=== PATIENT | male | born 1990 | race Caucasian/White ===

== ENCOUNTER 2024-05-01 20:29 | Emergency (ER) | payer OTHER ==
[2024-05-01 22:01] LABS: BASOPHILS PERCENT AUTO 0.2 % (0.2-1.2); EOSINOPHILS ABSOLUTE AUTO 0.2 x10^3/uL (0.0-0.5); EOSINOPHILS PERCENT AUTO 2.6 % (0.0-4.0); HEMATOCRIT 44.4 % (40.0-52.0); HEMOGLOBIN 15.1 g/dL (14.0-18.0); IMMATURE GRAN ABSOLUTE AUTO 0.03 x10^3/uL (0.00-0.07); LYMPHOCYTES PERCENT AUTO 11.1 % (25.0-50.0); MEAN CORPUSCULAR HEMOGLOBIN 28.8 pg (26.0-32.0); MEAN CORPUSCULAR VOLUME 84.7 fL (78.0-93.0); MONOCYTES ABSOLUTE AUTO 0.4 x10^3/uL (0.0-0.8); MONOCYTES PERCENT AUTO 4.9 % (2.0-11.0); NEUTROPHILS ABSOLUTE AUTO 7.2 x10^3/uL (1.8-7.7); NEUTROPHILS PERCENT AUTO 80.9 % (50.0-80.0); PLATELET COUNT,PLT 330 x10^3/uL (130-400); RED BLOOD CELL COUNT 5.24 x10^6/uL (4.5-6.0)
[2024-05-01 22:16] LABS: ALANINE AMINOTRANSFERASE,ALT 51 U/L (16-63); ALBUMIN 3.6 g/dL (3.4-5.0); ALKALINE PHOSPHATASE 107 U/L (46-116); ANION GAP 15.6 mmol/L (5-15); ASPARTATE AMNIOTRANSFERASE,AST 24 U/L (15-37); BILIRUBIN TOTAL 0.4 mg/dL (0.2-1.0); BLOOD UREA NITROGEN,BUN 15 mg/dL (7-18); C-REACTIVE PROTEIN 2.01 mg/dL (<=0.50); CALCIUM 9.3 mg/dL (8.5-10.1); CARBON DIOXIDE,CO2 26 mmol/L (21-32); CHLORIDE,CL 99 mmol/L (98-107); CREATININE 0.8 mg/dL (0.70-1.30); ESTIMATED GFR 119 mL/min (>=60); GLUCOSE RANDOM 88 mg/dL (70-99); LIPASE 38 U/L (19-71); POTASSIUM,K 3.6 mmol/L (3.5-5.1); PROTEIN TOTAL,TP 7.6 g/dL (6.4-8.2); SODIUM,NA 137 mmol/L (136-145)
[2024-05-01] MEDS: Oseltamivir 75 MG Cap PO ONE (23:10)
[2024-05-01] MEDS: guaiFENesin/Dextromethorphan 100-10 MG/5 ML Soln 10 ML Cup PO ONE (23:10)
[2024-05-02 08:47] VITALS: BP 144/83; PULSE 118
== END 2024-05-01 23:25 | disposition home or self-care (01) ==
LOC: VM.ED 20:29
DX: J10.1 Influenza due to other identified influenza virus with other respiratory manifestations (principal); K42.9 Umbilical hernia without obstruction or gangrene
CPT/HCPCS: 36415; 71046; 74176; 80053; 83605; 83690; 85025; 86140; 87428-QW; 99284; A9270-GY